=== PATIENT | female | born 1960 | race Caucasian/White ===

== ENCOUNTER 2019-01-07 08:00 | Outpatient (CLI) | payer OTHER ==
[2019-01-20] MEDS ORDERED: OXYBUTYNIN CHLOR5 MG PO (09:21)
[2019-01-20] MEDS ORDERED: MACROBID100 MG PO (09:22)
[2019-01-21 10:18] VITALS: BMI 21.9
== END 2019-01-07 23:59 | disposition home or self-care (01) ==
LOC: D.MAMMO 08:00
PROVIDERS: ATTEND Family Medicine
DX: Z12.31 Encounter for screening mammogram for malignant neoplasm of breast (principal)

== ENCOUNTER → 2019-01-11 14:39 | Outpatient (CLI) | payer OTHER ==
[~2019-01-11 14:39] MED LIST: FLOMAX0.4 MG PO; MACROBID100 MG PO; OXYBUTYNIN CHLOR5 MG PO
[2019-01-21 10:18] VITALS: BMI 21.9
== END | disposition home or self-care (01) ==
LOC: D.CT 14:30
PROVIDERS: ATTEND Internal Medicine Hematology & Oncology
DX: N20.0 Calculus of kidney (principal)

== ENCOUNTER 2019-01-13 15:44 | Day surgery (SDC) | payer OTHER ==
[~2019-01-13] VITALS: Ht 154.9 cm; Wt 52.7 kg
[2019-01-13 15:49] VITALS: BMI 20.8
[2019-01-13 16:14] VITALS: Ht 154.9 cm; Wt 52.7 kg
--- NOTE | 2019-01-13 18:40 | NUR ---
1829 ARRIVED BACK TO ROOM AND PT AWAKE. REFUSED FULL LIQ DIET. DRINKING WATER. IVF OPEN. DENIES ANY PAIN AT THIS TIME
--- NOTE | 2019-01-13 19:42 | NUR ---
1900 INSTRUCTIONS GIVEN TO PT AND ASSISTED UP TO BATHROOM. SOME DISCOMFORT NOTED. 1914 URINATED ADEQUATE AMT WITH SMALL AMT OF BLOOD NOTED.
--- NOTE | 2019-01-14 08:18 | OP ---
PATIENT NAME: MAG OBREGON MEDICAL RECORD: [id number] :64 LOCATION:D.[facility] ADMISSION DATE: SURGEON: JOSE HOLLOWAY MD DATE OF OPERATION: 01/13/2019 SURGEON: Jose Holloway MD ANESTHESIA: General anesthesia by Katheryn Bolanos CRNA PREOPERATIVE DIAGNOSIS: Right renal stone 9 mm and right distal ureteral stone, 5 mm. PROCEDURE: Cystoscopy, right retrograde pyelogram, right ureteroscopy and stone extraction, right ureteral stent insertion 6-Cameroonian x 22 cm with string attached. FINDINGS: Radiodense right renal and right distal ureteral stone. SPECIMENS: Right ureteral stone. ESTIMATED BLOOD LOSS: None. CLINICAL HISTORY: This is a 58-year-old female, who is the of one of our Emergency Room physicians. She has a history of kidney stones in the past. She had about 1 week of right flank pain with nausea and vomiting. She finally had a CT scan of the abdomen and pelvis performed and this showed the stones in the right kidney in the right distal ureter. Because of the ongoing pain, we are going to proceed with right ureteroscopy to remove the ureteral stone. A stent will be inserted and then at a later date, we can remove the right upper pole renal stone with lithotripsy. She was given [employer] oracle manufacturing consultant to the OR. DESCRIPTION OF PROCEDURE: The patient was given induction of general anesthesia in supine position. She was then placed into lithotomy position and prepped and draped. Fluoroscopy revealed the right renal stone very clearly. There were some intrapelvic calcifications, but there was one calcification that I suspected was the kidney stone in the ureter. We proceeded with a 21-Cameroonian cystoscope. She has single ureteral orifices bilaterally. There are no bladder tumors seen. An open-ended ureteral catheter was inserted into the right ureteral orifice. Diluted contrast was injected and this showed calcification that I suspected was the ureteral stone was indeed the ureteral stone. Proximal to the stone was hydroureteronephrosis. We then inserted a Sensor wire up into the renal pelvis through the lumen of the ureteral catheter. Once the wire was in position, the ureteral catheter was removed entirely. An 18 Cameroonian x 4-cm ureteral dilation balloon was then placed up into the right ureteral orifice and the orifice was dilated with 12 atmospheres of pressure for a few seconds. The balloon was then deflated and removed entirely. We then removed the cystoscope, leaving the Sensor wire in place. A rigid ureteroscope was then introduced. We managed to find the stone in the distal ureter. A 4-wire 0 tip 1.9 Cameroonian basket was placed around the stone. We could not get the stone down due to tissue edema where the stone had been lodged. Therefore, the stone had to be released from the basket. Over the wire, I inserted the balloon dilator again. At the level of the ureteral edema, the balloon was inflated to 8 atmospheres of pressure for a few seconds and then deflated. We then went back up with the ureteroscope. At this time, we caught the stone again and this time, we were able to entirely remove the stone. The wire was then backloaded onto the OPERATIVE REPORT [id number] MAG OBREGON cystoscope. Over the wire, we inserted the 6-Cameroonian x 22-cm ureteral stent. Once the stent was in correct position, the wire was withdrawn entirely. The distal end of the stent was pushed into the bladder using a pusher. The bladder was emptied through the cystoscope sheath and then the scope was removed. The string on the distal end of the stent is maintained. It hangs out of the urethra. It was taped to the suprapubic area with a small piece of Tegaderm. The patient does have a history of kidney stones. She is a vegetarian and she has previously had calcium oxalate stones. Unfortunately, her diet consists of foods which are very high in oxalate. This consists of nuts, Barebr's, chocolate, caffeine, spinach and kale. TRANSINT:[id number] Voice Confirmation ID: [id number] DOCUMENT ID: [id number] JOSE HOLLOWAY MD at 0818 CC: [id number] DICTATION DATE: 01/13/191758 CERTIFIED NURSE: 01/14/19 0059 [facility] 01/13/19 [address] [id number] [place] [address]
[2019-01-20] MEDS ORDERED: OXYBUTYNIN CHLOR5 MG PO (09:21)
[2019-01-20] MEDS ORDERED: MACROBID100 MG PO (09:22)
== END 2019-01-13 19:30 | disposition home or self-care (01) ==
LOC: D.OPS 15:44
PROVIDERS: ATTEND Urology
DX: N20.0 Calculus of kidney (principal)

== ENCOUNTER → 2019-01-13 18:43 | Outpatient (CLI) | payer OTHER ==
[2019-01-13 16:14] VITALS: BMI 21.9
[2019-01-23 10:09] LABS: CALCULI - CA OXALATE DIHYDRATE 60 % (()); CALCULI - CA OXALATE MONOHYDR 35 % (()); CALCULI - COLOR Tan (()); CALCULI - COMMENT Note: (()); CALCULI - WEIGHT 40.5 mg (())
== END | disposition home or self-care (01) ==
LOC: D.LABREF 18:43
PROVIDERS: ATTEND Urology
DX: N20.0 Calculus of kidney (principal)

== ENCOUNTER 2019-01-21 09:38 | Day surgery (SDC) | payer OTHER ==
[~2019-01-21] VITALS: Ht 154.9 cm; Wt 52.6 kg
[~2019-01-21 09:38] MED LIST changes: -FLOMAX0.4 MG PO
[2019-01-21 09:58] LABS: HEMATOCRIT 36.6 % (36.0-48.0); HEMOGLOBIN 11.5 g/dL (12-16); MCH 29.4 pg (26.0-34.0); MCHC 31.4 g/dL (31.0-37.0); MCV 93.6 fL (80.0-100.0); MEAN PLATELET VOLUME 9.3 fL (7.4-10.4); RBC 3.91 10x6/uL (4.00-5.40); RDW 12.6 % (11.5-14.5); WBC 6.4 10x3/uL (4.8-10.8)
[2019-01-21] MEDS ORDERED: FLOMAX0.4 MG PO (10:16)
[2019-01-21 10:18] VITALS: BP 127/71; Ht 154.9 cm; Wt 52.6 kg
--- NOTE | 2019-01-22 09:08 | OP ---
PATIENT NAME: MAG OBREGON MEDICAL RECORD: [id number] :64 LOCATION:D.[facility] ADMISSION DATE: SURGEON: JOSE HOLLOWAY MD DATE OF OPERATION: 01/21/2019 SURGEON: Jose Holloway MD ANESTHESIA: General anesthesia by [place] CRNA DIAGNOSIS: Right upper pole renal stones, 10 mm and 6 mm. PROCEDURE: Right extracorporeal shockwave lithotripsy times 2500. FINDINGS: Radiodense right upper pole renal stones, 10 mm and 6 mm. BLOOD LOSS: None. CLINICAL HISTORY: This is a 58-year-old female with a history of kidney stones. I initially saw her when she had acute renal colic from a distal ureteral stone. That was removed by ureteroscopy. A right ureteral stent was inserted at that time. She comes now to have the renal stones treated with ESWL. She was given Ancef manager of corporate communications to the OR. DESCRIPTION OF PROCEDURE: The patient was placed on the treatment table. The stones were targeted in 2 planes. She was then given induction of general anesthesia. After 2500 shocks, both stones were completely broken up. She will be seen in followup in 2 weeks' time with a KUB. TRANSINT:[id number] Voice Confirmation ID: [id number] DOCUMENT ID: [id number] JOSE HOLLOWAY MD at 0908 CC: [id number] DICTATION DATE: 01/21/19 1458 ACCOUNT MANAGER RELIEF: 01/22/[address] [facility] 01/21/19 [place] [id number]
== END 2019-01-21 16:50 | disposition home or self-care (01) ==
LOC: D.OPS 09:38 → D.PAN 11:30 → D.OPS 16:50
PROVIDERS: Anesthesiology; ATTEND Urology
DX: N20.0 Calculus of kidney (principal)

== ENCOUNTER → 2019-01-27 10:50 | Outpatient (CLI) | payer OTHER ==
[2019-01-21 10:18] VITALS: BMI 21.9
[~2019-01-27 10:50] MED LIST changes: +FLOMAX0.4 MG PO
== END | disposition home or self-care (01) ==
LOC: D.RAD 10:50
PROVIDERS: ATTEND Urology
DX: N20.0 Calculus of kidney (principal)

== ENCOUNTER → 2019-02-03 11:09 | Outpatient (CLI) | payer OTHER ==
[2019-01-21 10:18] VITALS: BMI 21.9
== END | disposition home or self-care (01) ==
LOC: D.RAD 11:09
PROVIDERS: ATTEND Urology
DX: N20.0 Calculus of kidney (principal)

== ENCOUNTER → 2019-02-04 13:37 | Outpatient (CLI) | payer OTHER ==
[2019-01-21 10:18] VITALS: BMI 21.9
== END | disposition home or self-care (01) ==
LOC: D.CT 13:37
PROVIDERS: ATTEND Urology
DX: N20.0 Calculus of kidney (principal)

== ENCOUNTER → 2019-04-08 15:33 | Outpatient (CLI) | payer OTHER ==
[2019-01-21 10:18] VITALS: BMI 21.9
== END | disposition home or self-care (01) ==
LOC: D.RAD 15:33
PROVIDERS: ATTEND Urology
DX: N20.0 Calculus of kidney (principal)

== ENCOUNTER 2019-10-14 20:43 | Emergency (ER) | payer OTHER ==
[~2019-10-14] VITALS: Ht 154.9 cm; Wt 54.5 kg
[2019-10-14 20:58] LABS: BASOPHILS 0.3 % (0-2); EOSINOPHILS 2.6 % (0-7); HEMATOCRIT 41.9 % (36.0-48.0); HEMOGLOBIN 13.8 g/dL (12-16); IMMATURE GRANULOCYTES 0.2 % (0-5); LYMPHOCYTES 41.5 % (15-50); MCH 31.5 pg (26.0-34.0); MCHC 32.9 g/dL (31.0-37.0); MCV 95.7 fL (80.0-100.0); MEAN PLATELET VOLUME 9.5 fL (7.4-10.4); MONOCYTES 5.9 % (2-11); NEUTROPHILS 49.5 % (40-80); PLATELET COUNT 217 10x3/uL (130-400); RBC 4.38 10x6/uL (4.00-5.40); RDW 12.2 % (11.5-14.5); WBC 5.7 10x3/uL (4.8-10.8)
[2019-10-14 21:06] LABS: CALC OSMOLALITY 283 mosm/kg (275-300); CALCIUM 9.6 mg/dL (8.5-10.1); CARBON DIOXIDE 29.9 mmol/L (21.0-32.0); CHLORIDE - SERUM 105 mmol/L (98-107); CREATININE - SERUM 0.8 mg/dL (0.6-1.3); GLUCOSE 127 mg/dL (74-106); POTASSIUM - SERUM 3.8 mmol/L (3.5-5.1); SODIUM 141 mmol/L (136-145); UREA NITROGEN 14 mg/dL (7-18); eGFR NON AFRICAN AMERICAN 78 mL/min (90-120)
[2019-10-14 21:12] LABS: ALBUMIN 4.2 g/dL (3.4-5.0); ALKALINE PHOSPHATASE 64 U/L (30-120); ALT (SGPT) 28 U/L (10-68); BILIRUBIN - TOTAL 0.35 mg/dL (0.2-1.3)
[2019-10-14 21:36] VITALS: Ht 154.9 cm; Wt 54.5 kg
[2019-10-14 22:07] LABS: BILIRUBIN NEGATIVE (NEGATIVE); GLUCOSE NEGATIVE (NEGATIVE); KETONE NEGATIVE (NEGATIVE); NITRITE NEGATIVE (NEGATIVE); UROBILINOGEN NORMAL (NORMAL)
[2019-10-14] MEDS ORDERED: HYDROCODON-ACE1 EA10 PO (22:35)
[2019-10-14] MEDS ORDERED: FLOMAX0.4 MG PO (22:35)
[2019-10-14 23:10] VITALS: BP 163/74
== END 2019-10-14 23:13 | disposition home or self-care (01) ==
LOC: D.ER 20:43
PROVIDERS: Family Medicine
DX: R10.9 Unspecified abdominal pain (principal); N20.1 Calculus of ureter

== ENCOUNTER 2019-11-12 17:50 | Emergency (ER) | payer OTHER ==
[~2019-11-12] VITALS: Ht 154.9 cm; Wt 56.8 kg
[~2019-11-12 17:50] MED LIST changes: +HYDROCODON-ACE1 EA10 PO
[2019-11-12 18:03] VITALS: BP 142/75; Ht 154.9 cm; Wt 56.8 kg
[2019-11-12 18:15] LABS: BILIRUBIN NEGATIVE (NEGATIVE); KETONE NEGATIVE (NEGATIVE); NITRITE NEGATIVE (NEGATIVE); UROBILINOGEN NORMAL (NORMAL)
[2019-11-12 18:16] LABS: RED CELLS - URINE OCC /hpf (0-5); WHITE CELLS - URINE 0-5 /hpf (0-5)
== END 2019-11-12 18:15 | disposition home or self-care (01) ==
LOC: D.ER 17:50
PROVIDERS: Emergency Medicine
DX: R10.9 Unspecified abdominal pain (principal); R30.9 Painful micturition, unspecified

== ENCOUNTER 2020-06-23 14:30 | Outpatient (CLI) | payer OTHER ==
[2020-04-09 23:03] VITALS: BMI 23.6
[~2020-06-23 14:30] MED LIST changes: +FLAGYL500 MG PO; +HYDROCODON-ACE1 EAC7 PO; +OMNICEF300 MG PO
== END 2020-06-23 15:00 | disposition home or self-care (01) ==
LOC: D.MAMMO 14:30
PROVIDERS: ATTEND Family Medicine
DX: Z12.31 Encounter for screening mammogram for malignant neoplasm of breast (principal)